=== PATIENT | female | born 1945 | race Caucasian/White ===

== ENCOUNTER → 2024-08-17 | Outpatient (CLI) | payer MEDICARE, BC, SELFPAY ==
[2024-08-17 09:50] LABS: Cardiac Risk Estimate 2.9 RATIO (3.7-5.6); Cholesterol 201 mg/dL (132-200); Free T4 (Free Thyroxine) 1.02 ng/dL (0.89-1.76); HDL Cholesterol 70 mg/dL (40-60); LDL Cholesterol,Calculated 111 mg/dL (0-130); Thyroid Stimulating Hormone 3.03 uIU/mL (0.55-4.78); Triglycerides 99 mg/dL (30-150)
== END | disposition home or self-care (01) ==
LOC: COPL 08:01
PROVIDERS: PCP Internal Medicine; Referring Provider Internal Medicine; Visit Provider Internal Medicine
DX: R07.89 Other chest pain (principal); R00.2 Palpitations; Z14.8 Genetic carrier of other disease; Z82.49 Family history of ischemic heart disease and other diseases of the circulatory system; R94.6 Abnormal results of thyroid function studies; E78.5 Hyperlipidemia, unspecified
CPT/HCPCS: 36415; 80061; 84439; 84443

== ENCOUNTER → 2024-08-31 | Outpatient (CLI) | payer MEDICARE, BC, SELFPAY ==
--- NOTE | 2024-08-31 15:40 | XR_ITS ---
Examination: Abdomen AP single view Technique: AP portable supine abdomen, single view Exam date and time: August 31, 2024 1617 hours INDICATIONS: Abdominal pain and constipation beginning 6 days ago. FINDINGS: Moderate to large amounts of stool throughout the colon No obstruction No free air IMPRESSION: Moderate to large amounts of stool throughout the colon
== END | disposition home or self-care (01) ==
LOC: CDIM 15:17
PROVIDERS: PCP Internal Medicine; Referring Provider Internal Medicine; Visit Provider Internal Medicine
DX: K59.04 Chronic idiopathic constipation (principal)
CPT/HCPCS: 74018

== ENCOUNTER → 2024-12-29 | Outpatient (CLI) | payer MEDICARE, BC, SELFPAY ==
[2024-12-29 09:24] LABS: Basophils % (Auto) 1 % (0-2.5); Eosinophils # (Auto) 0.2 Thou/mm3 (0.0-0.5); Eosinophils % (Auto) 4 % (0-10); Hematocrit 36.2 % (36.0-46.0); Hemoglobin 12.3 g/dL (12.0-16.0); Immature Granulocytes % (Auto) 0 % (0-0); Immature Granulocytes Auto 0.01 Thou/mm3 (0.00-0.00); Lymphocytes # (Auto) 1.9 Thou/mm3 (1.0-4.8); Lymphocytes % (Auto) 36 % (10-50); Mean Corpuscular Hemoglobin 30.5 pg (25.0-35.0); Mean Corpuscular Volume 90 fL (80-100); Monocytes # (Auto) 0.4 Thou/mm3 (0.0-0.8); Monocytes % (Auto) 8 % (0-12); Neutrophils # (Auto) 2.7 Thou/mm3 (1.8-7.7); Neutrophils % (Auto) 51 % (37-80); Nucleated Red Blood Cell % 0 /100 WBC (0); Platelet Count 237 Thou/mm3 (140-440); RDW Standard Deviation 41.4 fL (36.4-46.3); Red Blood Count 4.03 Miln/mm3 (4.00-5.20); White Blood Count 5.3 Thou/mm3 (3.6-11.0)
[2024-12-29 09:36] LABS: Alanine Aminotransferase 17 U/L (10-49); Albumin, Serum 4.3 gm/dL (3.4-4.8); Alkaline Phosphatase 39 U/L (46-116); Anion Gap 6 (7-16); Aspartate Amino Transferase 26 U/L (0-34); BUN/Creatinine Ratio 22 Ratio (12-20); Bilirubin,Total 0.8 mg/dL (0.3-1.2); Blood Urea Nitrogen 20 mg/dL (9-23); Calcium 9.4 mg/dL (8.3-10.6); Calcium (Corrected) 9.4 mg/dL (8.5-10.1); Carbon Dioxide 29.2 mMol/L (20.0-31.0); Chloride 105 mMol/L (98-107); Creatinine (Component) 0.9 mg/dL (0.6-1.3); Globulin 2.2 gm/dL (2.3-3.5); Glucose 93 mg/dL (74-106); Osmolality,Calculated 282 (275-295); Potassium 4.3 mMol/L (3.4-5.1); Sodium 140 mMol/L (136-145); Total Protein 6.5 gm/dL (5.7-8.2); eGFR > 60 See Note
[2024-12-29 09:41] LABS: Ferritin 34 ng/mL (7.3-270.7)
== END | disposition home or self-care (01) ==
LOC: COPL 08:01
PROVIDERS: PCP Internal Medicine; Referring Provider Internal Medicine; Visit Provider Internal Medicine
DX: K92.2 Gastrointestinal hemorrhage, unspecified (principal); R78.5 Finding of other psychotropic drug in blood; K59.04 Chronic idiopathic constipation
CPT/HCPCS: 36415; 80053; 82728; 85025

== ENCOUNTER → 2025-01-08 | Outpatient (CLI) | payer MEDICARE, BC, SELFPAY ==
[2025-01-08 11:30] LABS: OBS Card Lot # 20-22; OBS Performed By LAB; OBS QC OK? Yes
[2025-01-08 13:32] LABS: OBS Developer Lot # 551749; Occult Blood, Stool Negative (Negative); Occult Blood, Stool #2 Negative (Negative); Occult Blood, Stool #3 Negative (Negative)
== END | disposition home or self-care (01) ==
LOC: SLDO 11:08
PROVIDERS: PCP Internal Medicine; Referring Provider Internal Medicine; Visit Provider Internal Medicine
DX: Z12.11 Encounter for screening for malignant neoplasm of colon (principal)
CPT/HCPCS: 82270

== ENCOUNTER → 2025-03-19 | Outpatient (CLI) | payer MEDICARE, BC, SELFPAY ==
[2025-03-19 12:14] LABS: Vitamin D 25 Hydroxy Total 52.2 ng/mL (7.3-40.2)
[2025-03-19 12:19] LABS: Albumin, Serum 4.3 gm/dL (3.4-4.8); Anion Gap 9 (7-16); BUN/Creatinine Ratio 20 Ratio (12-20); Blood Urea Nitrogen 16 mg/dL (9-23); Calcium 9.4 mg/dL (8.3-10.6); Calcium (Corrected) 9.4 mg/dL (8.5-10.1); Carbon Dioxide 27.0 mMol/L (20.0-31.0); Chloride 107 mMol/L (98-107); Creatinine (Component) 0.8 mg/dL (0.6-1.3); Free T4 (Free Thyroxine) 1.00 ng/dL (0.89-1.76); Glucose 84 mg/dL (74-106); Osmolality,Calculated 285 (275-295); Phosphorous 3.5 mg/dL (2.4-5.1); Potassium 4.8 mMol/L (3.4-5.1); Sodium 143 mMol/L (136-145); Thyroid Stimulating Hormone 3.00 uIU/mL (0.55-4.78); eGFR > 60 See Note
== END | disposition home or self-care (01) ==
LOC: COPL 10:30
PROVIDERS: PCP Internal Medicine; Referring Provider Internal Medicine Endocrinology, Diabetes & Metabolism; Visit Provider Internal Medicine Endocrinology, Diabetes & Metabolism
DX: E04.2 Nontoxic multinodular goiter (principal); E55.9 Vitamin D deficiency, unspecified
CPT/HCPCS: 36415; 80069; 82306; 84439; 84443